=== PATIENT | male | born 1980 | race Caucasian/White ===

== ENCOUNTER 2018-05-22 10:51 | Emergency (ER) | payer MEDICAID ==
[~2018-05-22] VITALS: Ht 185.4 cm; Wt 117.9 kg
[2018-05-22 12:30] VITALS: BP 123/77
== END 2018-05-22 12:33 | disposition home or self-care (01) ==
LOC: ER 10:51
DX: J02.9 Acute pharyngitis, unspecified (principal); F17.210 Nicotine dependence, cigarettes, uncomplicated; Z90.49 Acquired absence of other specified parts of digestive tract
CPT/HCPCS: 71046

== ENCOUNTER 2019-02-13 22:25 | Emergency (ER) | payer MEDICAID ==
[~2019-02-13] VITALS: Ht 185.4 cm; Wt 113.4 kg
[2019-02-14 08:59] VITALS: BP 150/84
[2019-02-14] MEDS ORDERED: MORPHINE SULF INJ 2 MG/ML SYRINGE 1ML IM ONE (09:45)
[2019-02-14] MEDS ORDERED: ONDANSETRON ODT 4 MG TAB PO ONE (09:45)
== END 2019-02-14 11:27 | disposition home or self-care (01) ==
LOC: ER 22:25
DX: S52.302A Unspecified fracture of shaft of left radius, initial encounter for closed fracture (principal); S52.301A Unspecified fracture of shaft of right radius, initial encounter for closed fracture; S00.83XA Contusion of other part of head, initial encounter; J32.9 Chronic sinusitis, unspecified; F17.210 Nicotine dependence, cigarettes, uncomplicated; F12.10 Cannabis abuse, uncomplicated; V87.8XXA Person injured in other specified noncollision transport accidents involving motor vehicle (traffic), initial encounter; Y93.55 Activity, bike riding; Y92.488 Other paved roadways as the place of occurrence of the external cause; Y99.8 Other external cause status
CPT/HCPCS: 29125; 70450; 70486; 72125; 73080; 73110; 96372; 99284; J2270; Q0162

== ENCOUNTER 2019-03-28 17:50 | Emergency (ER) | payer MEDICAID ==
[~2019-03-28] VITALS: Ht 185.4 cm; Wt 104.3 kg
[2019-03-28 18:15] VITALS: BP 134/66
[2019-03-28] MEDS ORDERED: LIDOCAINE 1% HCL (LOCAL ANESTH.) INJ 20ML MDV IJ ONE (20:30)
[2019-03-28] MEDS ORDERED: LIDOCAINE 1% HCL (LOCAL ANESTH.) INJ 20ML MDV ID ONE (21:00)
[2019-03-28] MEDS ORDERED: cefTRIAXone SOD 1,000 MG VL IM ONE (21:00)
== END 2019-03-28 21:20 | disposition home or self-care (01) ==
LOC: ER 17:59
DX: L02.214 Cutaneous abscess of groin (principal); F17.210 Nicotine dependence, cigarettes, uncomplicated; F12.10 Cannabis abuse, uncomplicated
CPT/HCPCS: 10060; 96372; 99283; C1887; J0696; J2001

== ENCOUNTER 2019-09-18 14:27 | Emergency (ER) | payer SELFPAY ==
[~2019-09-18] VITALS: Ht 185.4 cm; Wt 113.4 kg
[2019-09-18 16:55] VITALS: BP 124/73
== END 2019-09-18 17:27 | disposition home or self-care (01) ==
LOC: ER 14:35
DX: H92.01 Otalgia, right ear (principal); H10.9 Unspecified conjunctivitis; F17.210 Nicotine dependence, cigarettes, uncomplicated; F12.10 Cannabis abuse, uncomplicated